=== PATIENT | female | born 1980 | race Caucasian/White ===

== ENCOUNTER 2018-02-20 21:49 | Emergency (ER) | payer OTHER ==
[2018-02-21] MEDS: IBUPROFEN 600 MG TAB PO (01:07)
== END 2018-02-21 03:01 | disposition home or self-care (01) ==
LOC: FTE 21:49
DX: J02.9 Acute pharyngitis, unspecified (principal); J45.909 Unspecified asthma, uncomplicated; R40.2412 Glasgow coma scale score 13-15, at arrival to emergency department
CPT/HCPCS: 87880; 99283

== ENCOUNTER 2018-05-15 22:41 | Emergency (ER) | payer OTHER | END 2018-05-15 23:48 | disposition home or self-care (01) | LOC: FTE 22:41 | DX: Z76.0 Encounter for issue of repeat prescription (principal); J45.909 Unspecified asthma, uncomplicated | CPT/HCPCS: 99281; Z7502 ==

== ENCOUNTER 2019-06-18 22:29 | Emergency (ER) | payer SELFPAY, OTHER ==
[2019-06-18] MEDS: ACETAMINOPHEN 325 MG TAB PO (22:59)
[2019-06-18] MEDS: SODIUM CHLORIDE 0.9% 1L BAG IV* (23:00)
[2019-06-19] MEDS: IBUPROFEN 600 MG TAB PO (01:25)
== END 2019-06-19 01:40 | disposition home or self-care (01) ==
LOC: E/R 22:29
DX: R50.9 Fever, unspecified (principal); D64.9 Anemia, unspecified; D69.6 Thrombocytopenia, unspecified; J45.909 Unspecified asthma, uncomplicated; R07.9 Chest pain, unspecified
CPT/HCPCS: 36415; 71045; 80053; 81001; 81003; 81025; 83605; 84436; 84443; 84479; 84484; 85025; 85610; 85730; 87040-91; 87086; 93005; 99285-25

== ENCOUNTER 2019-06-19 21:56 | Emergency (ER) | payer SELFPAY | END 2019-06-19 23:26 | disposition home or self-care (01) | LOC: FTE 21:56 | DX: R51 Headache (principal); J45.909 Unspecified asthma, uncomplicated | CPT/HCPCS: 99282 ==